=== PATIENT | male | born 1990 | race African-American/Black ===

== ENCOUNTER 2019-09-07 18:42 | Emergency (ER) | payer MEDICAID ==
[~2019-09-07] VITALS: Ht 180.3 cm; Wt 68.0 kg
[2019-09-07 20:13] VITALS: BP 122/69
== END 2019-09-07 21:31 | disposition home or self-care (01) ==
LOC: ER 18:48
DX: G56.01 Carpal tunnel syndrome, right upper limb (principal); R20.2 Paresthesia of skin; F17.210 Nicotine dependence, cigarettes, uncomplicated
CPT/HCPCS: 29125; 99283